=== PATIENT | female | born 1990 | race Caucasian/White ===

== ENCOUNTER 2021-06-20 16:13 | Inpatient (IN) | payer OTHER ==
[~2021-06-20] VITALS: Ht 170.2 cm; Wt 75.0 kg
[2021-06-20 17:30] LABS: HEMOGLOBIN 11.8 gm/dl (12.3-15.3); RED BLOOD COUNT 3.9 M/UL (4.00-5.10)
[2021-06-20 17:51] LABS: BUN/CREATININE RATIO 17 (0-10)
[2021-06-21] MEDS ORDERED: LYRICA200 MG PO (01:47)
[2021-06-21] MEDS ORDERED: TOPAMAX50 MG PO (01:47)
[2021-06-21] MEDS ORDERED: CYMBALTA60 MG PO (01:47)
[2021-06-21] MEDS ORDERED: ELAVIL 50 MG TA50 MG PO (01:48)
[2021-06-21] MEDS ORDERED: ZYRTEC10 MG PO (01:51)
[2021-06-21] MEDS ORDERED: MAVYRET (01:51)
[2021-06-21] MEDS ORDERED: MYCOSTATIN100000 UTS PO (01:52)
[2021-06-21] MEDS ORDERED: PROAIR HFA8.5 GM INH (01:52)
--- NOTE | 2021-06-21 05:03 | NUR ---
PATIENT REFUSING LAB DRAW THIS MORNING FOR [facility] AND [employer] FOR ACCURATE I&O'S DUE TO THE NEED FROM FLUID AND LEVOPHED ADMINISTRATION.
[2021-06-21 10:38] LABS: HEMOGLOBIN 10.7 gm/dl (12.3-15.3); RED BLOOD COUNT 3.69 M/UL (4.00-5.10)
[2021-06-21 10:39] LABS: WHITE BLOOD COUNT 5.8 K/UL (4.5-11.0)
[2021-06-21 11:25] LABS: BUN/CREATININE RATIO 19 (0-10)
[2021-06-21] MEDS ORDERED: FELDENE20 MG PO (12:47)
[2021-06-21] MEDS ORDERED: BUPRENORPHIN-N1 EACH SL (17:27)
[2021-06-22 08:14] LABS: VITAMIN D, 25-HYDROXY 24.4 ng/mL (30.0-100.0)
[2021-06-22 09:14] LABS: HIV SCREEN 4TH GENERATION WRFX Non Reactive (Non Reactive)
[2021-06-22 10:47] LABS: HEMOGLOBIN 9.7 gm/dl (12.3-15.3); WHITE BLOOD COUNT 4.5 K/UL (4.5-11.0)
[2021-06-22 10:54] LABS: RED BLOOD COUNT 3.27 M/UL (4.00-5.10)
[2021-06-22 11:07] LABS: BUN/CREATININE RATIO 13 (0-10)
[2021-06-22 12:14] LABS: HBSAG SCREEN Negative (Negative); HEPATITIS B SURF AB QUANT >1000.0 mIU/mL (Immunity>9.9)
[2021-06-22 23:12] LABS: CHLAMYDIA TRACHOMATIS, NAA Negative (Negative); NEISSERIA GONORRHOEAE, NAA Negative (Negative)
[2021-06-23 07:01] LABS: RED BLOOD COUNT 3.48 M/UL (4.00-5.10); WHITE BLOOD COUNT 3.4 K/UL (4.5-11.0)
[2021-06-23 07:22] LABS: BUN/CREATININE RATIO 12 (0-10)
[2021-06-23] MEDS ORDERED: LEVOFLOXACIN750 MG PO (11:39)
== END 2021-06-23 12:45 | disposition home or self-care (01) | DRG 871 ==
LOC: ER1 16:13 → CDU 21:44 → CCU 21:44 → MED SURG 4 21:44 → CCU 06-21 02:14 → MED SURG 4 06-21 18:38
PROVIDERS: Internal Medicine; Physician Assistant; ADMIT Internal Medicine
DX: A41.9 Sepsis, unspecified organism (principal); J18.9 Pneumonia, unspecified organism; J15.9 Unspecified bacterial pneumonia; R65.21 Severe sepsis with septic shock; N39.0 Urinary tract infection, site not specified; Z20.822 Contact with and (suspected) exposure to COVID-19; M54.9 Dorsalgia, unspecified; B19.20 Unspecified viral hepatitis C without hepatic coma; F17.290 Nicotine dependence, other tobacco product, uncomplicated; U07.0 Vaping-related disorder; R55 Syncope and collapse; F19.10 Other psychoactive substance abuse, uncomplicated; K52.9 Noninfective gastroenteritis and colitis, unspecified; R31.9 Hematuria, unspecified; F41.9 Anxiety disorder, unspecified; F32.A Depression, unspecified; G89.29 Other chronic pain; Z95.4 Presence of other heart-valve replacement; Z79.899 Other long term (current) drug therapy
CPT/HCPCS: ECHO; 36415; 36600; 70450; 71045; 71250; 80048; 80053; 80202; 80307; 81001; 82140; 82550; 82553; 82607; 82728; 82746; 82803; 83540; 83550; 83605; 83615; 83735; 83874; 83880; 84100; 84439; 84443; 84484; 84550; 84703; 85025; 85027; 85045; 86140; 86317; 86704; 87040; 87081; 87086; 87340; 87389; 87880; 93005; 93306; 94640; 94664; 94760; 96374; 96375; 99285; C9113; J0692; J1650; J1885; J2020; J2405; J2543; J3370; J7030; J7050; J7070; U0002

== ENCOUNTER 2021-07-10 14:42 | Emergency (ER) | payer OTHER ==
[~2021-07-10 14:42] MED LIST: BUPRENORPHIN-N1 EACH SL; CYMBALTA60 MG PO; ELAVIL 50 MG TA50 MG PO; FELDENE20 MG PO; LEVOFLOXACIN750 MG PO; LYRICA200 MG PO; MAVYRET; MYCOSTATIN100000 UTS PO; PROAIR HFA8.5 GM INH; TOPAMAX50 MG PO; ZYRTEC10 MG PO
[2021-07-10 15:54] LABS: HEMOGLOBIN 12.6 gm/dl (12.3-15.3); RED BLOOD COUNT 4.21 M/UL (4.00-5.10); WHITE BLOOD COUNT 5.4 K/UL (4.5-11.0)
[2021-07-10 16:20] LABS: BUN/CREATININE RATIO 22 (0-10)
[2021-07-10] MEDS ORDERED: BENTYL 20MG TAB20 MG PO (20:42)
[2021-07-10] MEDS ORDERED: LODINE CAP 300300 MG PO (20:42)
[2021-07-10] MEDS ORDERED: ZOFRAN ODT 4 MG4 MG PO (20:42)
== END 2021-07-10 21:20 | disposition home or self-care (01) ==
LOC: ER1 14:42
PROVIDERS: Physician Assistant
DX: N83.292 Other ovarian cyst, left side (principal); F17.200 Nicotine dependence, unspecified, uncomplicated
CPT/HCPCS: 76856; 80053; 80307; 81001; 83605; 84703; 85025; 87040; 87086; 99284; J7030; Q9967